=== PATIENT | female | born 1980 | race Caucasian/White ===

== ENCOUNTER → 2021-02-01 10:05 | Outpatient (BNVA) | payer BC, SELFPAY | PROVIDERS: Visit Provider Nurse Practitioner Family | DX: M79.671 Pain in right foot (principal); E78.5 Hyperlipidemia, unspecified; F32.A Depression, unspecified; F41.9 Anxiety disorder, unspecified; M77.31 Calcaneal spur, right foot | CPT/HCPCS: 73610; 73630; 80053; 80061; 82306; 82607; 84443; 85025 ==

== ENCOUNTER → 2021-02-07 08:38 | Outpatient (BNVA) | payer BC, SELFPAY | PROVIDERS: Visit Provider Nurse Practitioner Family | DX: M79.671 Pain in right foot (principal) | CPT/HCPCS: 73610 ==

== ENCOUNTER → 2021-03-06 10:17 | Outpatient (BNVA) | payer BC, SELFPAY | PROVIDERS: Visit Provider Nurse Practitioner Family | DX: M25.561 Pain in right knee (principal); M25.512 Pain in left shoulder; M77.12 Lateral epicondylitis, left elbow | CPT/HCPCS: 73030; 73562 ==

== ENCOUNTER → 2021-04-17 15:23 | Outpatient (BNVA) | payer BC, MEDICAID, SELFPAY | PROVIDERS: Referring Provider Nurse Practitioner Family; Visit Provider Podiatrist Foot & Ankle Surgery | DX: M79.671 Pain in right foot (principal); M79.89 Other specified soft tissue disorders; M77.31 Calcaneal spur, right foot | CPT/HCPCS: 73630 ==

== ENCOUNTER → 2021-05-19 09:58 | Outpatient (BNVA) | payer BC, MEDICAID, SELFPAY | PROVIDERS: PCP Nurse Practitioner Family; Visit Provider Nurse Practitioner Family | DX: R30.0 Dysuria (principal) | CPT/HCPCS: 81003 ==

== ENCOUNTER → 2021-06-07 14:45 | Outpatient (BNVA) | payer BC, MEDICAID, SELFPAY | PROVIDERS: PCP Nurse Practitioner Family; Visit Provider Nurse Practitioner Family | DX: M25.50 Pain in unspecified joint (principal); N93.9 Abnormal uterine and vaginal bleeding, unspecified; E55.9 Vitamin D deficiency, unspecified | CPT/HCPCS: 80053; 82306; 82607; 82670; 83002; 83735; 84144; 84146; 84403; 84439; 84443; 84550; 85025; 85651; 86038; 86140; 86200; 86431 ==

== ENCOUNTER 2021-07-11 09:28 | Outpatient (CLI) | payer BC, MEDICAID, SELFPAY ==
--- NOTE | 2021-07-11 09:35 | XR_ITS ---
WS: [email or web address] Cervical spine, 3 views, 07/11/2021 Clinical Data: Neck pain, numbness and tingling left hand, BAEZ Comparison: None. Findings: No compression fractures are seen. The disc heights are normal. There is no prevertebral so ft tissue swelling. The odontoid is unremarkable. The soft tissues of the neck and the lung apices ar e normal. XR/XR cervical spine 3V* [id number] Impression: Negative cervical spine.
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
== END 2021-07-11 09:29 | disposition home or self-care (01) ==
LOC: RAD 09:30
PROVIDERS: PCP Nurse Practitioner Family; Visit Provider Nurse Practitioner Family
DX: M54.9 Dorsalgia, unspecified (principal); G89.29 Other chronic pain; Z98.1 Arthrodesis status; M54.2 Cervicalgia
CPT/HCPCS: 72040; 72114

== ENCOUNTER → 2021-07-26 09:36 | Outpatient (BNVA) | payer BC, MEDICAID, SELFPAY | PROVIDERS: PCP Nurse Practitioner Family; Visit Provider Orthopaedic Surgery | DX: M25.461 Effusion, right knee (principal) | CPT/HCPCS: 99213 ==

== ENCOUNTER → 2021-08-23 15:47 | Outpatient (BNVA) | payer BC, MEDICAID, SELFPAY | PROVIDERS: PCP Nurse Practitioner Family; Visit Provider Obstetrics & Gynecology | DX: Z12.4 Encounter for screening for malignant neoplasm of cervix (principal); N93.9 Abnormal uterine and vaginal bleeding, unspecified | CPT/HCPCS: 87624 ==

== ENCOUNTER 2021-09-13 08:31 | Outpatient (CLI) | payer BC, MEDICAID, SELFPAY ==
--- NOTE | 2021-09-13 08:30 | US_ITS ---
WS: [email or web address] TRANSABDOMINAL PELVIC ULTRASOUND HISTORY: N93.9 - Abnormal uterine and vaginal bleeding, unspecified COMPARISON: None available. Uterus: 9.1 cm x 5.7 cm x 4.9 cm. Normal size and echogenicity. No fibroids are identified. Endometrium: 1.2 cm. Normal homogeneity and size. Right ovary: 2.9 cm x 2.1 cm x 2.1 cm; no solid or cystic mass. Small follicles. Normal vascularity. Left ovary: 2.5 cm x 2.5 cm x 2.2 cm; no solid or cystic mass. Small follicle LEFT ovary measures 2.0 x 2.1 x 2.2 cm. Normal vascularity. No free fluid in the cul-de-sac. US/US pelvic complete* [id number] IMPRESSION: 1. Only transabdominal imaging done as the patient was vomiting during this ex amination and very sick. 2. Endometrium is normal at 1.2 cm. No abnormality identified. If endovaginal bleeding persists follow-up transvaginal ultrasound of the endometrium may be w orthwhile. 3. No uterine mass.
== END 2021-09-13 08:32 | disposition home or self-care (01) ==
LOC: RAD 08:32
PROVIDERS: PCP Nurse Practitioner Family; Visit Provider Obstetrics & Gynecology
DX: N93.9 Abnormal uterine and vaginal bleeding, unspecified (principal)
CPT/HCPCS: 76856

== ENCOUNTER → 2021-10-18 12:01 | Outpatient (BNVA) | payer BC, MEDICAID, SELFPAY | PROVIDERS: PCP Nurse Practitioner Family; Visit Provider Nurse Practitioner Family | DX: E55.9 Vitamin D deficiency, unspecified (principal); F41.9 Anxiety disorder, unspecified; F32.A Depression, unspecified; E78.5 Hyperlipidemia, unspecified; I49.8 Other specified cardiac arrhythmias | CPT/HCPCS: 80053; 80061; 82306; 83735; 84439; 84443; 85025 ==

== ENCOUNTER → 2021-10-27 09:37 | Outpatient (BNVA) | payer BC, MEDICAID, SELFPAY | PROVIDERS: PCP Nurse Practitioner Family; Visit Provider Nurse Practitioner Family | DX: R53.83 Other fatigue (principal) | CPT/HCPCS: 82607 ==

== ENCOUNTER 2021-11-08 05:51 | Emergency (ER) | payer BC, MEDICAID, SELFPAY ==
[2021-11-08 05:55] VITALS: BP 148/93; PULSE 87; RESP 18; TEMP 36.8; O2SAT 100; BMI 39.1
[2021-11-08 06:00] VITALS: PULSE 73; RESP 17; O2SAT 100
--- NOTE | 2021-11-08 06:02 | W.ED.ABDPA2 ---
HPI - Abdominal Pain General: Chief Complaint: Abdominal Pain Stated Complaint: ABD Pain Time Seen by Provider: 11/08/21 05:56 Source: patient Mode of arrival: ambulatory History of Present Illness: 41-year-old female presents emergency room complaining of left flank pain radiating into the left lower quadrant and groin region. Its been progressively worsening the last couple of days radiating down into the groin. It reached its peak tonight. She had difficulty with urination but no dysuria urgency or frequency. She has been nauseous but not had any vomiting or diarrhea. She denies any medication melena hematemesis coffee-ground emesis no hematuria. No history of pyelonephritis no history of nephrolithiasis. Previous sections no other abdominal surgeries. Patient reports a history of irritable bowel syndrome but has not had previously had a colonoscopy or biopsies. MD elicited complaint: abdominal pain Pertinent past history: other (IBS) Onset (ago): day(s) (2) Pain Consistency: now resolved Location: L flank Severity: severe Quality: sharp Radiation: suprapubic (Left) Exacerbating factors: nothing Relieving factors: nothing Associated Symptoms: Denies anorexia, belching, bloating, change in bowel habits, change in stool character, chills, coffee ground emesis, constipation, GI cramping, diarrhea, dyspepsia, dysuria, excessive flatus, fever(s), heartburn, hematochezia, hematuria, hematemesis, fecal incontinence, loose stools, melena, nausea, poor appetite, syncope and vomiting Related Data: Date of Last Menstrual Period: 10/25/21 Review of Systems Const: Denies: fever(s) or chills ENMT: Denies: throat pain, ear or mastoid pain, nasal discharge or nasal congestion Card: Denies: syncope Resp: Denies: dyspnea, productive cough or non-productive cough GI: Reports: abdominal pain; Denies: nausea, vomiting, hematemesis, coffee ground emesis, heartburn, diarrhea, constipation, bloating, GI cramping, belching, excessive flatus, fecal incontinence, change in bowel habits, change in stool character, hematochezia or melena : Reports: flank pain; Denies: difficulty voiding, dysuria, urinary frequency, urinary urgency or hematuria Skin/Breast: Denies: rash or pruritus PFSH ED PFSH: Medical History Depression History of congenital dysplasia of hip Hyperlipidemia No pertinent past medical history Denies diabetes, asthma, hypertension, seizures, DVT/PE PCP: MERISSA Bee Surgical History Hx of section Hx of spinal fusion S/P foot surgery 1994, performed for varicose vein thrombosis S/P tubal ligation Performed in 2008 at time of last Family History Father , age 66; lung ca; COPD Hyperlipidemia Heart disease Family/Other No problems noted. Grandmother Diabetes paternal Breast cancer diagnosed in her late 60s Mother Hypertension Breast cancer diagnosed in her late 50s. Denies family history of Colon cancer Ovarian cancer Uterine cancer Thyroid condition Stroke Social History Smoking and tobacco status: never smoked Female Reproductive History: Date of last menstrual period: 10/25/21 Physical Exam Const: COMMON NORMALS: no acute distress GENERAL APPEARANCE: cooperative and comfortable ORIENTATION/CONSCIOUSNESS: Yes awake, Yes oriented to person, Yes oriented to place and Yes oriented to time HENMT: COMMON NORMALS: normocephalic, atraumatic and hearing grossly normal bilaterally HEAD & SCALP: normocephalic and atraumatic Resp: COMMON NORMALS: normal respiratory effort, No retractions, No use of accessory muscles and clear to auscultation bilaterally AUSCULTATION: clear to auscultation bilaterally Cardio: COMMON NORMALS: regular rate, regular rhythm and No murmurs present (Cardio) RATE: regular rate RHYTHM: regular rhythm GI: COMMON NORMALS: Soft to palpation and No hepatosplenomegaly present AUSCULTATION: Yes normoactive bowel sounds PALPATION: Yes Soft to palpation, No Tenderness to palpation present (GI), No Guarding due to palpation present (GI) and Yes No hepatosplenomegaly present : COMMON NORMALS: Yes no CVA tenderness BLADDER/KIDNEY EXAM: Yes no CVA tenderness Back/Pelvis: COMMON NORMALS: no CVA tenderness Extremity: COMMON NORMALS: normal to inspection, capillary refill normal, no clubbing, cyanosis or edema, no calf tenderness and no pedal edema Neuro: SENSORIUM/ORIENTATION: Yes oriented to person, Yes oriented to place and Yes oriented to time Skin: COMMON NORMALS: no rashes or lesions noted GENERAL SKIN EXAM: no rashes or lesions noted Course Vital Signs: Vital signs: Vital Signs Temperature 98.3 F 11/08/21 05:55 Pulse Rate 67 11/08/21 07:22 Respiratory Rate 18 11/08/21 07:22 Blood Pressure 152/78 11/08/21 07:22 Pulse Oximetry 95 11/08/21 07:22 Oxygen Delivery Me thod 11/08/21 07:22 MDM - Abdominal Pain Medical Decision Making Labs and imaging reviewed. CT shows 3 mm stone within the bladder which fits the clinical picture. Patient has to strain urine hydrocodone for pain follow-up with urology return if has further problems or worsening pain. Medical Records I reviewed the patient's medical records. Lab Data I reviewed the patient's lab results. : 11/08/21 06:00 11/08/21 06:00 Labs/Radiology: Radiology Impressions Abdomen/Pelvis CT 11/08/21 06:51 IMPRESSION: 3 mm stone in the most dependent portion of the urinary bladder, possibly a recently passed stone. No renal or ureteral stones identified. No signs of urinary obstruction. COMMENTS: Evaluation of solid organs and vascular structures is limited as no IV contrast was administered. Laboratory Results WBC 6.9 10^3/uL (4.0-10.0) 11/08/21 06:00 RBC 4.10 10^6/uL (4.1-5.3) 11/08/21 06:00 Hgb 11.1 g/dL (11.5-15.3) L 11/08/21 06:00 Hct 34.9 % (37.0-47.0) L 11/08/21 06:00 MCV 85.1 fl (81-99) 11/08/21 06:00 MCH 27.1 pg (28.0-34.0) L 11/08/21 06:00 MCHC 31.8 g/dL (30.0-36.0) 11/08/21 06:00 RDW 14.2 % (12.1-15.1) 11/08/21 06:00 Plt Count 234 10^3/cmm (130-400) 11/08/21 06:00 MPV 10.4 fL (7.4-10.4) 11/08/21 06:00 Neut % (Auto) 61.5 % 11/08/21 06:00 Lymph % (Auto) 28.4 % 11/08/21 06:00 [place] % (Auto) 6.1 % 11/08/21 06:00 Eos % (Auto) 3.0 % 11/08/21 06:00 Baso % (Auto) 0.9 % 11/08/21 06:00 Neut # (Auto) 4.27 10^3/uL (1.8-7.7) 11/08/21 06:00 Lymph # (Auto) 2.0 10^3/uL (0.8-4.8) 11/08/21 06:00 [place] # (Auto) 0.4 10^3/uL (0.2-0.9) 11/08/21 06:00 Eos # (Auto) 0.2 10^3/uL (0.0-0.8) 11/08/21 06:00 Baso # (Auto) 0.1 10^3/uL (0.0-0.1) 11/08/21 06:00 Nucleated RBC % (auto) 0 % 11/08/21 06:00 Nucleated RBCs # 0.0 /100WBC 11/08/21 06:00 Sodium 141 mmol/L (136-145) 11/08/21 06:00 Potassium 4.0 mmol/L (3.5-5.1) 11/08/21 06:00 Chloride 103 mmol/L (98-107) 11/08/21 06:00 Carbon Dioxide 26 mmol/L (22-29) 11/08/21 06:00 Anion Gap 16.0 (5-19) 11/08/21 06:00 BUN 9 mg/dL (6-20) 11/08/21 06:00 Creatinine 0.5 mg/dL (0.5-0.9) 11/08/21 06:00 GFR Calculation 136.6 mL/min (90-130) H 11/08/21 06:00 Glucose 124 mg/dL (65-115) H 11/08/21 06:00 Calculated Osmolality 292 mOsm/kg (285-295) 11/08/21 06:00 Calcium 9.1 mg/dL (8.5-10.5) 11/08/21 06:00 Total Bilirubin 0.5 mg/dL (0.15-1.2) 11/08/21 06:00 AST 16 U/L (0-32) 11/08/21 06:00 ALT 22 U/L (0-33) 11/08/21 06:00 Alkaline Phosphatase 62 U/L (35-105) 11/08/21 06:00 Total Protein 7.0 g/dL (6.6-8.7) 11/08/21 06:00 Albumin 4.3 g/dL (3.5-5.2) 11/08/21 06:00 Globulin 2.7 g/dL (1.3-4.6) 11/08/21 06:00 Lipase 27 U/L (13-60) 11/08/21 06:00 HCG, Qual Negative (Negative) 11/08/21 06:00 Urine Color Yellow (Yellow) 11/08/21 06:28 Urine Appearance Clear (CLEAR) 11/08/21 06:28 Urine pH 5.5 (5-7) 11/08/21 06:28 Ur Specific [place] >= 1.030 (1.005-1.030) 11/08/21 06:28 Urine Protein Negative (Negative) 11/08/21 06:28 Urine Glucose (UA) Negative (Normal) 11/08/21 06:28 Urine Ketones Negative (Negative) 11/08/21 06:28 Urine Blood Large (Negative) A 11/08/21 06:28 Urine Nitrate Negative 11/08/21 06:28 Urine Bilirubin Negative (Negative) 11/08/21 06:28 Urine Urobilinogen 0.2 mg/dL (Negative) 11/08/21 06:28 Ur Leukocyte Esterase Negative 11/08/21 06:28 Urine RBC 25-40 /hpf (0-2) H 11/08/21 06:28 Urine WBC 5-10 /hpf (0-5) H 11/08/21 06:28 Ur Squamous Epith Cells 10-15 /hpf (0-5) H 11/08/21 06:28 Amorphous Sediment Not Reportable 11/08/21 06:28 Urine Bacteria 1+ /hpf (NONE) H 11/08/21 06:28 Discharge Plan Discharge Patient Disposition: Home Clinical Impression: Nephrolithiasis Condition: Stable Prescriptions: New hydrocodone-acetaminophen 5-325 mg tablet 1 tab PO Q6H PRN (Reason: pain) Qty: 10 0RF No Action sertraline [Zoloft] 50 mg tablet 50 mg PO DAILY Qty: 90 3RF ergocalciferol (vitamin D2) 1,250 mcg (50,000 unit) capsule 1,250 mcg PO .weekly Qty: 12 4RF cyanocobalamin (vitamin B-12) 1,000 mcg tablet, sublingual 2,000 mcg sublingual DAILY Qty: 60 2RF Discharge Orders: Discharge ED (Routine); Ordered 11/08/21 Ordered By: Trevor Rich Referrals: Ana M Brady FNP [Primary Care Provider] - Discharge Diet: Usual diet Discharge Activity: Resume usual activity Patient Instructions: Opioid Safety, Pain Management Activity Restrictions/Additional Instructions: Laboratory and imaging test today showed that you passed a kidney stone. That stone is still in the bladder. Strain your urine to catch the stone so that we can analyze it. Case management make arrangements for you to have follow-up with a urologist. Coding Level of Care Code ED Sheet Pile Driver Operator for Mitchell Fwd Exam Comprehensive
[2021-11-08 06:18] LABS: Basophils # 0.1 10^3/uL (0.0-0.1); Basophils % 0.9 %; Eosinophils # 0.2 10^3/uL (0.0-0.8); Hematocrit 34.9 % (37.0-47.0); Hemoglobin 11.1 g/dL (11.5-15.3); Lymphocytes % 28.4 %; Mean Corpuscular HGB Conc 31.8 g/dL (30.0-36.0); Mean Corpuscular Hemoglobin 27.1 pg (28.0-34.0); Mean Corpuscular Volume 85.1 fl (81-99); Mean Platelet Volume 10.4 fL (7.4-10.4); Monocytes # 0.4 10^3/uL (0.2-0.9); Monocytes % 6.1 %; Neutrophils # 4.27 10^3/uL (1.8-7.7); Neutrophils % 61.5 %; Nucleated Red Blood Cells % 0 %; Platelet Count 234 10^3/cmm (130-400); Red Cell Distribution Width 14.2 % (12.1-15.1); White Blood Count 6.9 10^3/uL (4.0-10.0)
[2021-11-08 06:22] LABS: HCG, Serum Qual Negative (Negative)
[2021-11-08 06:33] LABS: Alanine Aminotransferase 22 U/L (0-33); Albumin Level 4.3 g/dL (3.5-5.2); Alkaline Phosphatase 62 U/L (35-105); Aspartate Amino Transferase 16 U/L (0-32); Blood Urea Nitrogen 9 mg/dL (6-20); Calcium 9.1 mg/dL (8.5-10.5); Carbon Dioxide 26 mmol/L (22-29); Chloride 103 mmol/L (98-107); Globulin 2.7 g/dL (1.3-4.6); Glomerular Filtration Rate 136.6 mL/min (90-130); Glucose 124 mg/dL (65-115); Lipase 27 U/L (13-60); Osmolality Calculated 292 mOsm/kg (285-295); Sodium 141 mmol/L (136-145); Total Bilirubin 0.5 mg/dL (0.15-1.2)
[2021-11-08 06:42] LABS: Bilirubin Urine Negative (Negative); Blood Urine Large (Negative); Glucose Urine UA Negative (Normal); Ketones Urine Negative (Negative); Leukocyte Esterase Urine Negative; Nitrate Urine Negative; Protein Urine Negative (Negative); Specific Gravity, Urine >= 1.030 (1.005-1.030); Urine Appearance Clear (CLEAR); Urine Color Yellow (Yellow); Urobilinogen Urine 0.2 mg/dL (Negative); pH Urine 5.5 (5-7)
[2021-11-08 06:44] LABS: Add Urine Microscopic? YES
--- NOTE | 2021-11-08 06:51 | CTR_ITS ---
PROCEDURE INFORMATION: Exam: CT Abdomen And Pelvis Without Contrast Exam date and time: 11/08/2021 7:07 AM Age: 41 years old Clinical indication: Abdominal pain; Localized; Left lower quadrant (llq); Prior surgery; Surgery type: Back, ; Additional info: Flank pain TECHNIQUE: Imaging protocol: Computed tomography of the abdomen and pelvis without contrast. Radiation optimization: All CT scans at this facility use at least one of these dose optimization techniques: automated exposure control; mA and/or kV adjustment per patient size (includes targeted exams where dose is matched to clinical indication); or iterative reconstruction. COMPARISON: US pelvic complete* [id number] 09/13/2021 8:47 AM RADIATION DOSE METRICS: Total DLP (mGy-cm): 1025.28 FINDINGS: Liver: The liver is normal in size and contour. Gallbladder and bile ducts: The gallbladder is distended with normal wall thickness and does not demonstrate calcified gallstones. No intra- or extra-hepatic biliary ductal dilatation. Pancreas: The pancreas appears normal. Spleen: The spleen appears normal. Adrenal glands: The adrenals appear normal. Kidneys and ureters: No renal or ureteral stones identified. No signs of urinary obstruction. Perinephric or periureteral fat stranding. Stomach and bowel: The stomach is unremarkable. The small bowel loops are not abnormally dilated. The large bowel loops are not abnormally dilated. Appendix: The appendix appears normal. Intraperitoneal space: No ascites or significant fluid collection. Vasculature: The aorta is nonaneurysmal. The IVC appears normal. Lymph nodes: There are no enlarged lymph nodes. Urinary bladder: 3 mm stone in the most dependent portion of the urinary bladder, possibly a recently passed stone. Reproductive: Unremarkable as visualized. Bones/joints: Posterior spinal fixation hardware extending from T10-L2. Soft tissues: Unremarkable. CT/CT kidney stone [id number] IMPRESSION: 3 mm stone in the most dependent portion of the urinary bladder, possibly a recently passed stone. No renal or ureteral stones identified. No signs of urinary obstruction. COMMENTS: Evaluation of solid organs and vascular structures is limited as no IV contrast was administered.
[2021-11-08 07:00] LABS: Add Urine Culture? No; Bacteria Urine 1+ /hpf; RBC Urine 25-40 /hpf (0-2)
--- NOTE | 2021-11-08 07:21 | PC.NURSE ---
Report from BERTHA Cage. Pt resting quietly, no needs at this time.
[2021-11-08 07:22] VITALS: BP 152/78; PULSE 67; RESP 18; O2SAT 95
--- NOTE | 2021-11-08 09:46 | DCPLANNER ---
Addendum entered by Nyasia Means 11/30/21 14:59: Patient had a follow up appointment scheduled with urology - patient did attend appointment. Addendum entered by Nyasia Means 11/10/21 09:09: Patient has a follow up appointment scheduled for Saturday, November 27, 2021 at 10:30 with Rayne Sommer at urology. Clinic will call patient with appointment information. Original Note: apartment assistant manager had message to schedule a follow up appointment for patient with urology. apartment assistant manager sent patients information to the front office staff at urology. Patients information will be printed and reviewed. Clinic will call patient with appointment information.
== END 2021-11-08 08:12 | disposition home or self-care (01) ==
PROVIDERS: Emergency Provider Family Medicine; PCP Nurse Practitioner Family
DX: N20.0 Calculus of kidney (principal); E78.5 Hyperlipidemia, unspecified
CPT/HCPCS: 74176; 80053; 81001; 83690; 84703; 85025; 99284

== ENCOUNTER 2021-11-27 09:34 | Outpatient (CLI) | payer BC, MEDICAID, SELFPAY ==
--- NOTE | 2021-11-27 09:51 | XR_ITS ---
WS: [email or web address] KUB, AP view, 11/27/2021 Clinical Data: STONES Comparison: None. Findings: No abnormal intraabdominal masses or calcifications are seen. There is no dilatated small bowel or ev idence of obstruction. There is fecal material in the ascending and descending colon. The patient has had a posterior thorac olumbar fusion. XR/XR KUB [id number] Impression: Negative KUB.
== END 2021-11-27 09:35 | disposition home or self-care (01) ==
LOC: LAB 09:36
PROVIDERS: PCP Nurse Practitioner Family; Visit Provider Nurse Practitioner Family
DX: N20.9 Urinary calculus, unspecified (principal)
CPT/HCPCS: 74018

== ENCOUNTER → 2021-12-12 08:17 | Outpatient (BNVA) | payer BC, MEDICAID, SELFPAY | PROVIDERS: PCP Nurse Practitioner Family; Visit Provider Orthopaedic Surgery | DX: G89.29 Other chronic pain (principal); M25.561 Pain in right knee; M25.461 Effusion, right knee | CPT/HCPCS: 73560; 73565 ==

== ENCOUNTER 2022-01-18 06:17 | Outpatient (CLI) | payer BC, MEDICAID, SELFPAY ==
--- NOTE | 2022-01-18 06:30 | USCV_ITS ---
Faith Hoang Age: 41 Gender: F : 1980 Exam Date: 01/18/2022 06:55 Ordering Phys: Allison Fragoso MD ([email or web address]) Technologist: TAMMY Exam Location: [facility] [place] Indication: TACHYCARDIA/SYNCOPE BP: 104 / 68 HR: 70 Rhythm: Sinus Technical Quality: Adequate MEASUREMENTS (Male / Female) Normal Values 2D ECHO LVOT Diameter 2.0 cm LV Ejection Fraction MOD 2C 63.2 % LV Ejection Fraction 2C AL 66.2 % LA Diameter 3.6 cm LA Width 3.8 cm LA Height 4.8 cm RA Width 3.9 cm RA Height 4.6 cm Aorta at Sinotubular Diameter 2.5 cm IVC Diameter 2.0 cm M-MODE Aortic Annulus Diameter 3.0 cm LA Ao Ratio MM 1.3 MV E Point Septal Separation 0.6 cm DOPPLER AV Peak Velocity 111.0 cm/s LVOT Peak Velocity 112.0 cm/s AV Area Cont Eq vti 3.3 cm squared AV Area Cont Eq pk 3.1 cm squared MV Peak Velocity 79.0 cm/s MV Area PHT 2.7 cm squared Mitral E to A Ratio 1.3 MV E' Velocity 42.5 cm/s Mitral E to MV E' Ratio 6.6 Mitral E to LV E' Lateral Ratio 5.2 Mitral E to LV E' Septal Ratio 9.0 TR Peak Velocity 219.1 cm/s TR Peak Gradient 19.2 mmHg TR Mean Velocity 172.3 cm/s TR Mean Gradient 13.0 mmHg TR Velocity Time Integral 68.9 cm TV Peak E Velocity 56.0 cm/s Right Atrial Pressure 3.0 mmHg Pulmonary Artery Systolic Pressu 22.2 mmHg PV Peak Velocity 100.0 cm/s RV Acceleration Time 0.1 s RV Ejection Time 0.3 s RV AcT/ET 0.4 FINDINGS Left Ventricle Normal left ventricular size and systolic function, EF 58 %. No regional wall motion abnormalities. Right Ventricle The right ventricle is normal in size and function. Right Atrium The right atrium is normal in size. Left Atrium The left atrium is normal in size. Mitral Valve Structurally normal mitral valve. Aortic Valve No gross abnormalities noted Tricuspid Valve Trace tricuspid valve regurgitation. Pulmonic Valve No gross abnormalities noted Pericardium Normal pericardium without effusion. Aorta Normal ascending aorta dimension. IVC Normal inferior vena cava. CONCLUSIONS Normal left ventricular size and systolic function, EF 58 %. No regional wall motion abnormalities. Trace tricuspid valve regurgitation. Normal cardiac chamber sizes. No intracardiac shunts, by color-flow Doppler examination No intracardiac masses. There is no pericardial effusion. No similar previous studies are available for comparison Dr Allison Fragoso MD FAC (Electronically Signed) Final Date: 19 January 2022 18:48 S
== END 2022-01-18 06:18 | disposition home or self-care (01) ==
LOC: RAD 06:18
PROVIDERS: PCP Nurse Practitioner Family; Visit Provider Internal Medicine Cardiovascular Disease
DX: R00.0 Tachycardia, unspecified (principal); R06.09 Other forms of dyspnea; I07.1 Rheumatic tricuspid insufficiency
CPT/HCPCS: 93306

== ENCOUNTER → 2022-02-07 16:08 | Outpatient (BNVA) | payer BC, MEDICAID, SELFPAY | PROVIDERS: PCP Nurse Practitioner Family; Visit Provider Nurse Practitioner Family | DX: J06.9 Acute upper respiratory infection, unspecified (principal); J04.0 Acute laryngitis; J40 Bronchitis, not specified as acute or chronic | CPT/HCPCS: 71046; 80053 ==

== ENCOUNTER → 2022-02-20 17:14 | Outpatient (BNVA) | payer BC, MEDICAID, SELFPAY | PROVIDERS: PCP Nurse Practitioner Family; Visit Provider Nurse Practitioner Family | DX: R31.9 Hematuria, unspecified (principal); R30.9 Painful micturition, unspecified; M54.9 Dorsalgia, unspecified | CPT/HCPCS: 74018; 81000; 81003 ==

== ENCOUNTER → 2022-03-27 08:41 | Outpatient (BNVA) | payer BC, MEDICAID, SELFPAY | PROVIDERS: PCP Nurse Practitioner Family; Visit Provider Orthopaedic Surgery | DX: M54.50 Low back pain, unspecified (principal); Z98.1 Arthrodesis status | CPT/HCPCS: 72070; 72110 ==

== ENCOUNTER 2022-06-07 09:21 | Outpatient (CLI) | payer BC, MEDICAID, SELFPAY ==
--- NOTE | 2022-06-07 09:30 | MR_ITS ---
WS: [email or web address] MRI LUMBAR SPINE NONCONTRAST HISTORY: low back pain, previous lumbar fusion COMPARISON: None available. TECHNIQUE: Sagittal and axial multisequence imaging is submitted. Prior posterior thoracolumbar fusion from T10 to L2. T12 compression fracture is stabilized by the kelly isabela. No hardware screws at T12. Mild anterior wedging of T12. Normal lumbar alignment with no compression fractures or marrow edema. Disc spaces and vertebral body heights are well-preserved. Conus terminates normally at L1. L1-L2: Normal. L2-L3: Normal. L3-L4: Mild ligamentum flavum hypertrophy and facet disease. No stenosis. L4-L5: Mild annular disc bulging. Shallow LEFT foraminal disc protrusion with annular fissure. Modera te ligamentum flavum and facet arthritis. There is mild encroachment into the thecal sac and subartic ular recesses. Mild bilateral foraminal stenosis. L5-S1: Mild annular disc bulge. RIGHT foraminal disc protrusion and annular fissure. Disc protrusion narrows and contacts the exiting RIGHT L5 nerve root. Very slight encroachment into the lateral reces ses but no significant stenosis. MR/MR lumbar spine wo con* [id number] IMPRESSION: 1. Status post posterior thoracolumbar fusion from T10 to L2. Stabilizing a mi ld T12 compression fracture. 2. No new compression fractures. 3. RIGHT foraminal disc protrusion with annular fissure at L5-S1 with mild con tact on the RIGHT L5 nerve root. 4. Mild central, subarticular recess and foraminal stenosis at L4-5.
== END 2022-06-07 09:22 | disposition home or self-care (01) ==
LOC: RAD 09:23
PROVIDERS: PCP Nurse Practitioner Family; Visit Provider Orthopaedic Surgery
DX: M48.061 Spinal stenosis, lumbar region without neurogenic claudication (principal); Z98.1 Arthrodesis status; G89.29 Other chronic pain; M51.27 Other intervertebral disc displacement, lumbosacral region
CPT/HCPCS: 72148

== ENCOUNTER → 2022-06-15 09:38 | Outpatient (BNVA) | payer BC, MEDICAID, SELFPAY | PROVIDERS: PCP Nurse Practitioner Family; Visit Provider Nurse Practitioner Family | DX: N93.9 Abnormal uterine and vaginal bleeding, unspecified (principal); E78.5 Hyperlipidemia, unspecified | CPT/HCPCS: 80053; 80061; 83001; 84146; 84403; 84443; 85025 ==

== ENCOUNTER 2022-11-05 08:13 | Outpatient (CLI) | payer MEDICAID, SELFPAY ==
--- NOTE | 2022-11-05 08:31 | MM_ITS ---
WS: [email or web address] SCREENING DIGITAL TOMOSYNTHESIS MAMMOGRAM WITH CAD HISTORY: N95.1 - Menopausal and female climacteric states COMPARISON: None available. Bilateral CC and MLO with tomosynthesis views submitted. Synthetic mammography reviewed. Computer aid ed detection analyzed. Breast composition: The breasts are heterogeneously dense, which may obscure small masses. No suspici ous masses, microcalcifications or architectural distortion. IMPRESSION: MM/[place] [id number] BI-RADS: 1-Negative FOLLOW UP: 1 Year Follow-up
== END 2022-11-05 08:14 | disposition home or self-care (01) ==
PROVIDERS: PCP Nurse Practitioner Family; Visit Provider Obstetrics & Gynecology
DX: Z12.31 Encounter for screening mammogram for malignant neoplasm of breast (principal)
CPT/HCPCS: 77063; 77067

== ENCOUNTER 2022-12-25 09:25 | Outpatient (CLI) | payer MEDICAID, SELFPAY ==
--- NOTE | 2022-12-25 09:30 | MR_ITS ---
WS: [email or web address] MRI BRAIN WITH AND WITHOUT CONTRAST HISTORY: G43.909 - Migraine, unspecified, not intractable, left-sided headache and neck pain. COMPARISON: None available. TECHNIQUE: Multiplanar imaging performed through the brain with MultiHance 20 ml's IV. No acute infarcts are seen. Spears-white matter differentiation is well preserved. No susceptibility artifacts or prior lacunar infarcts. Ventricles and extra-axial spaces are normal. Clivus and pituitary gland are normal. Visualized posterior fossa and brainstem are also normal. Solid masslike area of enhancement just above the sylvian fissure on the LEFT is typical for a venous angioma. No enhancing masses or additional malformations. Dural venous sinuses are normal. Paranasal sinuses: Well aerated with no significant disease. Mastoid air cells: Normal. Calvarium and scalp: Normal. IMPRESSION: 1. No enhancing masses or acute infarct. 2. LEFT venous angioma just above the sylvian fissure. 3. No prior infarct or signal abnormalities.
[2022-12-25] MEDS: gadobenate dimeglumine 20 mL vial IV (10:10)
== END 2022-12-25 09:26 | disposition home or self-care (01) ==
LOC: RAD 09:25
PROVIDERS: PCP Nurse Practitioner Family; Visit Provider Nurse Practitioner Family
DX: G43.909 Migraine, unspecified, not intractable, without status migrainosus (principal); Q28.3 Other malformations of cerebral vessels
CPT/HCPCS: 70553; A9577

== ENCOUNTER → 2023-01-24 16:56 | Outpatient (BNVA) | payer MEDICAID, SELFPAY | PROVIDERS: PCP Nurse Practitioner Family; Visit Provider Obstetrics & Gynecology | DX: R53.83 Other fatigue (principal); R63.5 Abnormal weight gain; E78.5 Hyperlipidemia, unspecified; E28.2 Polycystic ovarian syndrome; N94.6 Dysmenorrhea, unspecified; R10.2 Pelvic and perineal pain; G89.29 Other chronic pain | CPT/HCPCS: 84443 ==

== ENCOUNTER 2023-04-11 08:55 | Outpatient (CLI) | payer MEDICAID, SELFPAY ==
--- NOTE | 2023-04-11 09:30 | MR_ITS ---
WS: [email or web address] MRA HEAD TECHNIQUE: Axial 3-D TOF images obtained with axial images and axial, sagittal, and coronal 2-D refor matted images. CLINICAL INFORMATION: G43.909 - Migraine, unspecified, not intractable, without... COMPARISON: None. FINDINGS: LEFT dominant distal vertebral artery. Basilar artery is patent. Normal vascularity to the WOOD SCRAP HANDLER territ ory bilaterally. Both ICAs are patent at the skull base. Small RIGHT A1 segment. Patent anterior communicating artery. Normal vascularity to the PRASANTH and MCA territories bilaterally. No evidence of proximal flow-limiting stenosis or aneurysm. IMPRESSION: Normal intracranial MRA.
--- NOTE | 2023-04-11 09:45 | MR_ITS ---
WS: [email or web address] MRI CERVICAL SPINE NONCONTRAST TECHNIQUE: Sagittal T1, T2 and STIR imaging. Axial T2, gradient, and fiesta imaging. CLINICAL INFORMATION: G43.909 - Migraine, unspecified, not intractable, without... Contrast not admin istered. Unable to obtain IV access. COMPARISON: None. FINDINGS: Straightening the normal cervical doses. Slight anterolisthesis C3 on C4. Mild disc bulging worse C4- C5 C5-C6 and C6-C7. Cord signal is normal. C2-C3: Normal. C3-C4: Mild facet arthropathy. Mild disc bulging with osteophytic ridging. Mild LEFT foraminal narrow ing. C4-C5: Small central disc protrusion. Slight contact of the cervical cord. Mild central canal stenosi s. Mild bilateral bony foraminal narrowing. Mild facet arthropathy. C5-C6: Shallow central disc protrusion. Mild central canal stenosis. Mild LEFT and no significant RIG HT foraminal narrowing. Mild facet arthropathy. C6-C7: Shallow central protrusion. Slight contact of the cervical cord. Mild central canal stenosis. Spinal canal and foramen are patent. C7-T1: Normal. Cord signal appears normal. No visualized lesions in the cervical cord. Visualized brain stem structures: Normal. Prevertebral soft tissues: Normal. IMPRESSION: 1. Straightening the normal cervical lordosis. Cord signal is normal. 2. Shallow central protrusions C4-C5 C5-C6 and C6-C7 with mild central canal stenosis and slight con tact of the cervical cord. This is worse at C4-5. 3. Multilevel mild bony foraminal narrowing worse at bilateral C4-5, LEFT C5-6 4. No visualized lesions within the cervical cord.
== END 2023-04-11 08:56 | disposition home or self-care (01) ==
LOC: RAD 08:55
PROVIDERS: PCP Nurse Practitioner Family; Visit Provider Psychiatry & Neurology Neurology
DX: G43.909 Migraine, unspecified, not intractable, without status migrainosus (principal); M54.81 Occipital neuralgia; M25.78 Osteophyte, vertebrae
CPT/HCPCS: 70544; 72141

== ENCOUNTER → 2023-04-30 08:18 | Outpatient (BNVA) | payer MEDICAID, SELFPAY | PROVIDERS: PCP Nurse Practitioner Family; Visit Provider Orthopaedic Surgery | DX: M54.2 Cervicalgia (principal) | CPT/HCPCS: 72050 ==

== ENCOUNTER → 2023-05-09 09:13 | Outpatient (BNVA) | payer MEDICAID, SELFPAY | PROVIDERS: PCP Nurse Practitioner Family; Visit Provider Nurse Practitioner Family | DX: M25.571 Pain in right ankle and joints of right foot (principal); E78.5 Hyperlipidemia, unspecified; E55.9 Vitamin D deficiency, unspecified; R73.9 Hyperglycemia, unspecified | CPT/HCPCS: 73610; 80053; 80061; 82306; 82607; 83036; 85025 ==

== ENCOUNTER 2023-06-12 06:00 | Outpatient (RCR) | payer MEDICAID, SELFPAY | END 2023-07-12 23:59 | disposition home or self-care (01) | LOC: TPT 06:00 | PROVIDERS: Visit Provider Anesthesiology Pain Medicine | DX: M54.2 Cervicalgia (principal); G89.29 Other chronic pain | CPT/HCPCS: 97110; 97140; 97162 ==

== ENCOUNTER 2023-07-13 06:00 | Outpatient (RCR) | payer MEDICAID, SELFPAY | END 2023-08-11 23:59 | disposition home or self-care (01) | LOC: TPT 06:00 | PROVIDERS: Visit Provider Anesthesiology Pain Medicine | DX: M54.2 Cervicalgia (principal); G89.29 Other chronic pain | CPT/HCPCS: 97110; 97140 ==

== ENCOUNTER 2023-08-12 06:00 | Outpatient (RCR) | payer MEDICAID, SELFPAY | END 2023-09-11 23:59 | disposition home or self-care (01) | LOC: TPT 06:00 | PROVIDERS: Visit Provider Anesthesiology Pain Medicine | DX: M54.2 Cervicalgia (principal); G89.29 Other chronic pain | CPT/HCPCS: 97110; 97140 ==

== ENCOUNTER → 2023-09-23 11:15 | Outpatient (BNVA) | payer MEDICAID, SELFPAY | PROVIDERS: Visit Provider Obstetrics & Gynecology | DX: Z12.4 Encounter for screening for malignant neoplasm of cervix (principal); E28.2 Polycystic ovarian syndrome | CPT/HCPCS: 84402; 84403; 87624 ==

== ENCOUNTER → 2023-09-25 14:25 | Outpatient (BNVA) | payer MEDICAID, SELFPAY | PROVIDERS: PCP Nurse Practitioner Family; Visit Provider Nurse Practitioner Family | DX: R05.9 Cough, unspecified (principal) | CPT/HCPCS: 87071; 87400; 87426; 87880 ==

== ENCOUNTER → 2023-11-22 10:30 | Outpatient (BNVA) | payer MEDICAID, SELFPAY | PROVIDERS: PCP Nurse Practitioner Family; Visit Provider Nurse Practitioner Family | DX: E78.5 Hyperlipidemia, unspecified (principal); E55.9 Vitamin D deficiency, unspecified; E28.2 Polycystic ovarian syndrome | CPT/HCPCS: 80053; 80061; 82306; 82607; 83036; 84443; 85025 ==

== ENCOUNTER 2023-11-26 09:58 | Outpatient (CLI) | payer MEDICAID, SELFPAY ==
--- NOTE | 2023-11-26 10:00 | MM_ITS ---
WS: [email or web address] Bilateral screening 3D tomosynthesis digital mammogram, 11/26/2023 10:08 AM Clinical Data: SCREENING Comparison: 11/05/2022, 06/24/2014. Findings: No spiculated masses or clustered calcifications are seen. There are no secondary signs of carcinoma . MM/MM scr BI tomosynthesis [id number] Impression: Negative bilateral mammogram unchanged. Recommend annual screening mammograms. BIRADS: 1 - Negative FOLLOW UP: 1 Year Follow-up DENSITY: The breasts are heterogeneously dense, which may obscure small masses. The CAD abstract checker was used
== END 2023-11-26 09:59 | disposition home or self-care (01) ==
LOC: MOBLMAM 09:59
PROVIDERS: PCP Obstetrics & Gynecology; Visit Provider Obstetrics & Gynecology
DX: Z12.31 Encounter for screening mammogram for malignant neoplasm of breast (principal)
CPT/HCPCS: 77063; 77067

== ENCOUNTER 2024-04-14 13:54 | Outpatient (CLI) | payer MEDICAID, SELFPAY | END 2024-04-14 13:55 | disposition home or self-care (01) | LOC: SLEEP 13:55 | PROVIDERS: PCP Nurse Practitioner Family; Visit Provider Nurse Practitioner Family | DX: G47.33 Obstructive sleep apnea (adult) (pediatric) (principal) | CPT/HCPCS: 72050; 72110; G0399 ==

== ENCOUNTER → 2024-05-18 14:44 | Outpatient (BNVA) | payer MEDICAID, SELFPAY | PROVIDERS: PCP Nurse Practitioner Family; Visit Provider Nurse Practitioner Women's Health | DX: N95.1 Menopausal and female climacteric states (principal) | CPT/HCPCS: 82670; 83001; 83002; 83036; 84403; 84443 ==

== ENCOUNTER → 2024-05-22 09:09 | Outpatient (BNVA) | payer MEDICAID, SELFPAY | PROVIDERS: PCP Nurse Practitioner Family; Visit Provider Nurse Practitioner Women's Health | DX: R30.0 Dysuria (principal) | CPT/HCPCS: 81000; 87086 ==

== ENCOUNTER → 2024-06-15 15:16 | Outpatient (BNVA) | payer MEDICAID, SELFPAY | PROVIDERS: PCP Nurse Practitioner Family; Visit Provider Nurse Practitioner Family | DX: M25.561 Pain in right knee (principal); M25.562 Pain in left knee | CPT/HCPCS: 73562 ==

== ENCOUNTER → 2024-06-26 09:04 | Outpatient (BNVA) | payer MEDICAID, SELFPAY | PROVIDERS: PCP Nurse Practitioner Family; Visit Provider Nurse Practitioner | DX: M25.561 Pain in right knee (principal); M25.562 Pain in left knee; M22.2X1 Patellofemoral disorders, right knee; M22.2X2 Patellofemoral disorders, left knee | CPT/HCPCS: 73560; 73565 ==

== ENCOUNTER → 2024-08-10 09:11 | Outpatient (BNVA) | payer MEDICAID, SELFPAY | PROVIDERS: PCP Nurse Practitioner Family; Visit Provider Nurse Practitioner Women's Health | DX: N95.1 Menopausal and female climacteric states (principal) | CPT/HCPCS: 84402; 84403 ==

== ENCOUNTER 2024-08-11 05:00 | Outpatient (RCR) | payer MEDICAID, SELFPAY | END 2024-09-10 23:59 | disposition home or self-care (01) | LOC: TPT 05:00 | PROVIDERS: Visit Provider Nurse Practitioner | DX: M22.2X1 Patellofemoral disorders, right knee (principal); M22.2X2 Patellofemoral disorders, left knee; M25.561 Pain in right knee; M25.562 Pain in left knee; G89.29 Other chronic pain; M23.51 Chronic instability of knee, right knee; M23.52 Chronic instability of knee, left knee | CPT/HCPCS: 97110; 97161 ==

== ENCOUNTER 2024-09-11 05:00 | Outpatient (RCR) | payer MEDICAID, SELFPAY | END 2024-10-11 23:59 | disposition home or self-care (01) | LOC: TPT 05:00 | PROVIDERS: PCP Nurse Practitioner Family; Visit Provider Nurse Practitioner | DX: M22.2X1 Patellofemoral disorders, right knee (principal); M22.2X2 Patellofemoral disorders, left knee | CPT/HCPCS: 97110; 97140 ==

== ENCOUNTER → 2024-09-29 08:20 | Outpatient (BNVA) | payer MEDICAID, SELFPAY | PROVIDERS: PCP Nurse Practitioner Family; Visit Provider Orthopaedic Surgery | DX: M48.02 Spinal stenosis, cervical region (principal) | CPT/HCPCS: 72050 ==

== ENCOUNTER 2024-10-12 05:00 | Outpatient (RCR) | payer MEDICAID, SELFPAY | END 2024-11-02 09:22 | disposition home or self-care (01) | LOC: TPT 05:00 | PROVIDERS: PCP Nurse Practitioner Family; Visit Provider Nurse Practitioner | DX: M22.2X1 Patellofemoral disorders, right knee (principal); M22.2X2 Patellofemoral disorders, left knee; M25.561 Pain in right knee; M25.562 Pain in left knee; G89.29 Other chronic pain | CPT/HCPCS: 97110; 97164 ==

== ENCOUNTER → 2024-10-21 08:20 | Outpatient (BNVA) | payer MEDICAID, SELFPAY | PROVIDERS: PCP Nurse Practitioner Family; Visit Provider Nurse Practitioner Women's Health | DX: Z30.430 Encounter for insertion of intrauterine contraceptive device (principal); N94.6 Dysmenorrhea, unspecified | CPT/HCPCS: 81025 ==

== ENCOUNTER 2024-10-23 13:27 | Outpatient (CLI) | payer MEDICAID, SELFPAY ==
--- NOTE | 2024-10-23 13:45 | MR_ITS ---
WS: [id number] MRI CERVICAL SPINE NONCONTRAST HISTORY: Neck pain COMPARISON: 04/11/2023 Technique: Multiplanar, multisequence noncontrast imaging of the cervical spine. Straightening and mild reversal of the normal cervical lordosis. No fracture or marrow edema. Signal within the cervical cord is normal. Visualized posterior fossa is unremarkable. Craniocervical junction, C1 and C2 relationship, odontoid process and soft tissues are normal. C2-C3: Normal. C3-C4: Mild annular disc bulging with mild effacement of CSF. Small bilateral foraminal osteophytes. Mild central and foraminal stenosis. C4-C5: Small central disc protrusion. Mild annular disc bulging and osteophytic ridging. Mild disc osteophyte contact on the central canal. Mild central and foraminal stenosis. C5-C6: Central disc protrusion with annular fissure. There is contact on the ventral cord and effacement of CSF. Small bilateral foraminal osteophytes. Mild to moderate central and bilateral foraminal stenosis. Mild progression since the prior study. C6-C7: Minimal disc bulging. No stenosis. C7-T1: Normal. Very small bilateral thyroid nodules. Largest is 5 mm on the LEFT. MR/MR cervical spin wo con* [id number] IMPRESSION: 1. No acute fractures or marrow edema. 2. C5-6: Central disc protrusion and foraminal osteophytes. There is mild to m oderate central and foraminal stenosis which has progressed since the prior jennifer dy. 3. C3-4 and C4-5: Mild central and bilateral foraminal stenosis due to disc an d osteophyte disease. No interval progression. 4. Normal signal within the cord.
--- NOTE | 2024-10-23 15:30 | US_ITS ---
WS: [id number] US pelv w/transvag [id number] HISTORY: R10.2 - Pelvic and perineal pain COMPARISON: 09/13/2021 Uterus: 9.6 cm x 5.3 cm x 4.2 cm. Prior normal size anteverted uterus. Prior scars along the lower uterine segment from C-sections. Uterus is slightly lobulated and heterogeneous but no discrete mass or nodule is identified. Endometrium: 0.6 cm. IUD is noted. The IUD appears to be appropriately positioned. The distal IUD is very close to the tract scar. Right ovary: 2.0 cm x 2.2 cm x 2.4 cm. Normal size and vascularity, no cystic or solid masses. Left ovary: 3.2 cm x 2.7 cm x 2.2 cm. Normal size and vascularity, no cystic or solid masses. Small follicle associated with the LEFT ovary. No free fluid in the cul-de-sac. US/US pelv w/transvag [id number] IMPRESSION: 1. IUD remains in good position along the endometrium. 2. Prior scar along the lower uterine segment. 3. Heterogeneous myometrium but no mass or fibroid is identified. 4. No free fluid or adnexal mass.
== END 2024-10-23 13:28 | disposition home or self-care (01) ==
LOC: RAD 13:27
PROVIDERS: PCP Nurse Practitioner Family; Visit Provider Orthopaedic Surgery
DX: M54.2 Cervicalgia (principal)
CPT/HCPCS: 72141; 76830; 76856

== ENCOUNTER 2024-11-05 08:38 | Outpatient (CLI) | payer MEDICAID, SELFPAY ==
[2024-11-05 09:42] LABS: Hematocrit 36.4 % (36-47); Hemoglobin 11.80 g/dL (11.27-16.99); Mean Corpuscular HGB Conc 32.4 g/dL (30-55); Mean Corpuscular Hemoglobin 28.3 pg (27-33); Mean Corpuscular Volume 87.3 fl (85-98); Nucleated Red Blood Cells % 0 %; Platelet Count 258 10^3/cmm (157-399); Red Blood Count 4.17 10^6/uL (3.85-5.65); White Blood Count 7.45 10^3/uL (3.29-11.43)
[2024-11-05 09:47] LABS: Glucose Urine UA Negative (Normal); Nitrate Urine Negative (Negative); Specific Gravity, Urine 1.022 (1.005-1.030)
[2024-11-05 09:56] LABS: Add Urine Microscopic? YES
[2024-11-05 09:58] LABS: Estmated Average Glucose 134; Hemoglobin A1C 6.3 % (4.0-6.0)
[2024-11-05 10:02] LABS: Alanine Aminotransferase 23 U/L (0-33); Albumin Level 4.1 g/dL (3.5-5.2); Alkaline Phosphatase 70 U/L (35-105); Anion Gap 15.7 (5-19); Aspartate Amino Transferase 15 U/L (0-32); Blood Urea Nitrogen 9 mg/dL (6-20); Calcium 9.1 mg/dL (8.5-10.5); Carbon Dioxide 23 mmol/L (22-29); Chloride 102 mmol/L (98-107); Globulin 3.0 g/dL (1.3-4.6); Glucose 134 mg/dL (65-115); Osmolality Calculated 285 mOsm/kg (285-295); Potassium 3.7 mmol/L (3.5-5.1); Sodium 137 mmol/L (136-145); Total Protein 7.1 g/dL (6.6-8.7)
[2024-11-05 10:29] LABS: UA Slide Review UA Slide Review Perf
== END 2024-11-05 08:39 | disposition home or self-care (01) ==
LOC: LAB 08:40
PROVIDERS: PCP Nurse Practitioner Family; Visit Provider Orthopaedic Surgery
DX: Z01.818 Encounter for other preprocedural examination (principal)
CPT/HCPCS: 36415; 80053; 81001; 83036; 85025

== ENCOUNTER 2024-11-25 09:13 | Day surgery (SDC) | payer MEDICAID, SELFPAY ==
[2024-11-25] VITALS (16 sets, daily range): BP systolic 133–157; BP diastolic 68–99; PULSE 68–89; RESP 12–24; TEMP 36.2–36.6; O2SAT 89–98; BMI 39.1
--- NOTE | 2024-11-25 10:28 | ANES.PREANE2 ---
Pre-Anesthetic Assessment Height/Weight: Height 1.7 m Weight 113.398 kg O2 Del Method Room Air 11/25/24 09:46 Preop Diagnosis: Cervical stenosis with radiculopathy and myelopathy Operation Date: 11/25/24 10:40 Proposed Procedures p Anterior Cervical Discectomy & Fusion ACDF(Not Applicable) - Benitez Wahl DO Familial anesthetic complications: None Was Beta Danni taken within 24 hours: N/A Was Clonidine taken within 24 hours: N/A Last intake: Intake Last Liquid Date 11/24/24 Last Liquid Time 23:30 Last Solid Date 11/24/24 Last Solid Time 19:00 Social No alcohol and No tobacco Exam alert, oriented x 3, clear to auscultation bilaterally and regular rate & rhythm Airway Mallampati: Class III Dentition: chipped and full Pulmonary Sleep Apnea CV/HEM Arrythmia ( benign ) Metabolic Morbid Obesity PCOS Anesthetic Plan ASA status: 2 Anesthesia: General Risk of > 500 ml blood loss (7ml/kg in children): No Medications/Allergies Home Medications ?Medication ?Instructions ?Recorded ?Confirmed ?Last Taken ?Type nystatin 100,000 unit/gram topical 1 applic topical BID #30 grams 05/18/24 11/24/24 11/24/24 Rx cream vortioxetine 10 mg tablet 10 mg PO BEDTIME 05/18/24 11/24/24 11/24/24 History (Trintellix) atorvastatin 10 mg tablet 10 mg PO BEDTIME 11/24/24 11/24/24 11/24/24 History estradiol 0.5 mg tablet 0.5 mg PO BEDTIME 11/24/24 11/24/24 11/24/24 History ibuprofen 800 mg tablet 800 mg PO TID PRN Pain (Scale 11/24/24 11/24/24 11/17/24 History Score 1-3) progesterone micronized 100 mg 100 mg PO BEDTIME 11/24/24 11/24/24 11/24/24 History capsule Allergies Allergy/AdvReac Type Severity Reaction Status Date / Time codeine Allergy ADR/ALGY-Fl Verified 11/13/24 09:16 ushing Penicillins Allergy ADR/ALGY-Flushing---can Verified 11/13/24 09:16 take Keflex and amoxicillin [facility] Anesthesia Medical History Primary osteoarthritis of left knee Chronic instability of both knee joints Chronic patellofemoral pain of both knees Patellofemoral pain syndrome of both knees Fatigue No pertinent past medical history Denies diabetes, asthma, hypertension, seizures, DVT/PE PCP: MERISSA Bee History of congenital dysplasia of hip Depression Hyperlipidemia Surgical History S/P foot surgery 1994, performed for varicose vein thrombosis S/P tubal ligation Performed in 2008 at time of last Hx of spinal fusion Hx of section Family History Father , age 66; lung ca; COPD Hyperlipidemia Heart disease CAD (coronary artery disease) Cancer Lung disease Family/Other Dementia Grandmother Diabetes paternal Breast cancer diagnosed in her late 60s Cancer Mother Hypertension Breast cancer diagnosed in her late 50s. Cancer Grandfather Suicide Denies family history of Colon cancer Ovarian cancer Clotting disorder Chronic kidney disease (CKD) Anesthesia complication Bleeding disorder Uterine cancer Thyroid disease Stroke Social History Smoking and tobacco/nicotine status: never used tobacco/nicotine Female Reproductive History Date of last menstrual period: 11/17/24 Data Anesthesia Cardiac Studies: Echocardiogram 01/18/22 Cardiac Event Monitor 12/26/21
[2024-11-25 10:33] LABS: OR HCG Qualitative Urine Negative (Negative)
--- NOTE | 2024-11-25 10:56 | W.PM.OPSUD ---
Surgery/Procedure H&P Update DATE OF PROCEDURE: November 25, 2024 DATE H&P PERFORMED: 11/05/24 H&P UPDATE INFORMATION: I have reviewed H&P completed within last 30 days, I have examined patient prior to procedure and No changes to prior documentation PREOP DIAGNOSIS: Cervical stenosis with radiculopathy and myelopathy PLANNED PROCEDURE: Operation Date: 11/25/24 10:40 Proposed Procedures p Anterior Cervical Discectomy & Fusion ACDF(Not Applicable) - Benitez Wahl DO
[2024-11-25] MEDS: lidocaine-epi 1% 20 mL INJ 10 ML INJECTION (12:24)
--- NOTE | 2024-11-25 13:38 | PM.OP ---
Operative Report Date of procedure: November 25, 2024 Pre-op diagnosis: Cervical stenosis with radiculopathy Post-op diagnosis: same Procedure done: 1. Anterior diskectomy C4/5 2. Anterior discectomy C5/6 3. Insertion of cage C4/5 4. Insertion of Cage C5/6 5. Instrumentation with anterior plate from C4-C6 6. Use of allograft Surgeon: Benitez Wahl DO Estimated blood loss (mL): 25 Procedure: 1. Anterior diskectomy C4/5 2. Anterior discectomy C5/6 3. Insertion of cage C4/5 4. Insertion of Cage C5/6 5. Instrumentation with anterior plate from C4-C6 6. Use of allograft The patient was taken to the operating room, where he underwent general endotracheal anesthesia without complications. He was then positioned supine on the operating table, and all areas of impingement were well padded. The arms were carefully padded and tucked at his sides. A roll was placed between the shoulder blades.. An x-ray was done to determine the appropriate level for the skin incision. The entire neck was then sterilely prepped and draped in the usual fashion. Neuromonitoring was attached prior to prepping. A transverse skin incision was made and carried down to the platysma muscle. This was then split in line with its fibers. Blunt dissection was carried down medial to the carotid sheath and lateral to the trachea and esophagus until the anterior cervical spine was visualized. A needle was placed into a disc and an x-ray was done to determine its location. The longus colli muscles were then elevated bilaterally with the electrocautery unit. Self-retaining retractors were placed deep to the longus colli muscle. Attention was brought to the C4/5 level that was confirmed on x-ray. A caspar pin was placed into the C4 vertebrae and the C5 vertebrae. The disk space was then distracted. The microscope was then brought in. A radical anterior discectomies were performed at C4/5. This included complete removal of the anterior annulus, nucleus, and posterior annulus. The posterior longitudinal ligament was removed as were the posterior osteophytes. Foraminotomies were then accomplished bilaterally. This was done using a high speed licha, kerrison rongeurs and curretes Once all of this was accomplished, the curved currette was used to check for any residual compression. The central canal was wide open as were the foramen. A high-speed bur was used to remove the cartilaginous endplates above and below the interspace. Bleeding cancellous bone was exposed. The disc space were measured and appropriate size cage were placed sterilely onto the field. Allograft graft was packed into the cages. The cage was then placed and there was good juxtaposition against the bleeding decorticated surfaces and good distraction of each interspace. Attention was brought to the next interspace. The Wakefield pins were removed. Bone wax was used to prevent any bleeding from occurring at the pin sites. Attention was brought to the C5/6 level that was confirmed on x-ray. A caspar pin was placed into the C 5 vertebrae and the C 6 vertebrae. The disk space was then distracted. The microscope was then brought in. A radical anterior discectomies were performed at C 5/6. This included complete removal of the anterior annulus, nucleus, and posterior annulus. The posterior longitudinal ligament was removed as were the posterior osteophytes. Foraminotomies were then accomplished bilaterally. This was done using a high speed licha, kerrison rongeurs and curretes Once all of this was accomplished, the curved currette was used to check for any residual compression. The central canal was wide open as were the foramen. A high-speed bur was used to remove the cartilaginous endplates above and below the interspace. Bleeding cancellous bone was exposed. The disc space were measured and appropriate size cage were placed sterilely onto the field. Allograft graft was packed into the cages. The cage was then placed and there was good juxtaposition against the bleeding decorticated surfaces and good distraction of each interspace. The Wakefield pins were removed. Bone wax was used to prevent any bleeding from occurring at the pin sites. The appropriate size anterior cervical locking plate was chosen and bent into gentle lordosis. Two screws were then placed into each of the vertebral bodies at C4, C5 and C6. There was excellent purchase. A final x-ray was done confirming good position of the hardware and Cages. The locking screws were then applied, also with excellent purchase. Following a final copious irrigation, there was good hemostasis and no dural leaks. The carotid pulse was strong. The wounds were then closed in layers using 2-0 Vicryl suture for the platysma muscle, 2-0 Vicryl suture for the subcutaneous tissue, and 4-0 monocryl suture in a subcuticular skin closure. Glue was placed followed by application of a sterile dressing. The drain was hooked to bulb suction. A soft collar was applied. The patient was then carefully returned to the supine position on his hospital bed where he was reversed and extubated and taken to the recovery room having tolerated the procedure well.
[2024-11-25] MEDS: fentaNYL 50 mcg/mL INJ 2mL IVP (13:55)
--- NOTE | 2024-11-25 14:28 | PC.NURSE ---
ROM and sensation all four extremeties.
[2024-11-25] MEDS: HYDROcodone-acetaminophen 5-325 mg Tablet 2 TAB PO (15:06)
--- NOTE | 2024-11-25 15:07 | XR_ITS ---
WS: [id number] XR cervical spine 3V* [id number] REASON FOR EXAM: diskectomy C4/5 FINDINGS: Anterior plate and screw fixation with interbody fusion devices C4-C6. Surgical appliances are intact and in proper position and alignment. XR/XR cervical spine 3V* [id number] IMPRESSION: Anterior cervical fusion without abnormality.
--- NOTE | 2024-11-25 16:00 | ANE.PACU2 ---
Inpatient post-anesthesia follow up: Airway intact: Yes Vital signs: Temperature 97.8 F Pulse Rate 78 Respiratory Rate 16 Blood Pressure 140/82 Pulse Oximetry 95 Oxygen Delivery Me thod Room Air Oxygen Flow Rate 8 Fraction of Inspir ed Oxygen Hydration adequate: Yes Nausea and vomiting: No Pain level: 1 Mental status: Baseline
[2024-11-25 16:30] LABS: Hepatitis A Antibody IgM Non-Reactive (Nonreactive); Hepatitis B Surface Antigen Non-Reactive (Nonreactive)
[2024-11-25 16:46] LABS: HIV 1 & 2 Antigen Non-Reactive (Non-Reactiv)
== END 2024-11-25 16:00 | disposition home or self-care (01) ==
PROVIDERS: Anesthesiology; PCP Nurse Practitioner Family; Visit Provider Orthopaedic Surgery
PROC: 0RB30ZZ Excision of Cervical Vertebral Disc, Open Approach (ICD-10-PCS; CPT 22551; principal; 2024-11-25 10:20)
DX: M48.02 Spinal stenosis, cervical region (principal); M54.12 Radiculopathy, cervical region; G47.30 Sleep apnea, unspecified; E66.01 Morbid (severe) obesity due to excess calories; Z68.39 Body mass index [BMI] 39.0-39.9, adult; E28.2 Polycystic ovarian syndrome; E78.5 Hyperlipidemia, unspecified; F32.A Depression, unspecified
CPT/HCPCS: 22551; 22552; 22853 ×2; 20930; 22845; 51702; 72040; 76000; 80074; 81025; 87806; C1713; C1763; C9359; J0131; J0330; J1100; J1885; J2250; J2371; J2405; J2704; J3010; J3490; J7030; J9999

== ENCOUNTER 2024-12-17 08:02 | Outpatient (CLI) | payer MEDICAID, SELFPAY ==
--- NOTE | 2024-12-17 08:06 | MR_ITS ---
WS: [id number] MRI LUMBAR SPINE NONCONTRAST HISTORY: HX OF LUMBAR FUSION/LUMBAR RADICULOPATHY COMPARISON: 04/14/2024 TECHNIQUE: Sagittal and axial multisequence imaging is submitted. Prior fusion hardware extends from T10-L2. Mild compression deformity of T12. No acute fracture. Very slight bowing of the posterior endplate of T12 is similar to the prior study. Normal lumbar alignment with no compression fractures or marrow edema. Disc spaces and vertebral body heights are well-preserved. Conus terminates normally at L1. L1-L2: Normal. L2-L3: Mild disc bulging and facet arthritis. No high-grade stenosis. L3-L4: Mild disc bulging with a shallow RIGHT foraminal disc protrusion. Mild ligamentum flavum and facet arthritis. No significant stenosis. L4-L5: Mild disc bulging with ligamentum flavum and facet arthritis. There is mild encroachment upon the thecal sac and subarticular recesses. Small disc osteophyte in the LEFT foramen. Mild central, subarticular recess and foraminal stenosis. Not significantly changed. L5-S1: Mild disc bulging with a RIGHT foraminal disc osteophyte complex. There is mild contact on the exiting RIGHT L5 nerve root. Very minimal encroachment upon the S1 nerve roots. Paravertebral soft tissues are negative. MR/MR lumbar spine wo/w con [id number] IMPRESSION: 1. Thoracolumbar fusion from T10-L2 appears intact. 2. Stable appearance of the minimal compression fracture of T12. 3. No high-grade central or foraminal stenosis. 4. Very shallow RIGHT foraminal disc protrusion at L3-4 without stenosis. 5. Mild central, subarticular recess and foraminal stenosis unchanged at L4-5. Small disc osteophyte in the LEFT foramen. 6. RIGHT foraminal disc osteophyte complex at L5-S1 with mild contact on the e xiting RIGHT L5 nerve root.
== END 2024-12-17 08:03 | disposition home or self-care (01) ==
LOC: RAD 08:02
PROVIDERS: PCP Nurse Practitioner Family; Visit Provider Anesthesiology
DX: M51.17 Intervertebral disc disorders with radiculopathy, lumbosacral region (principal); Z98.1 Arthrodesis status; M48.061 Spinal stenosis, lumbar region without neurogenic claudication; M25.78 Osteophyte, vertebrae; M51.26 Other intervertebral disc displacement, lumbar region; M46.06 Spinal enthesopathy, lumbar region; M47.896 Other spondylosis, lumbar region; M48.07 Spinal stenosis, lumbosacral region; M43.25 Fusion of spine, thoracolumbar region
CPT/HCPCS: 72158

== ENCOUNTER → 2024-12-22 11:35 | Outpatient (BNVA) | payer MEDICAID, SELFPAY | PROVIDERS: PCP Nurse Practitioner Family; Visit Provider Nurse Practitioner Family | DX: R30.0 Dysuria (principal); N39.0 Urinary tract infection, site not specified | CPT/HCPCS: 81003; 87086 ==

== ENCOUNTER → 2025-01-12 08:35 | Outpatient (BNVA) | payer MEDICAID, SELFPAY | PROVIDERS: PCP Nurse Practitioner Family; Visit Provider Orthopaedic Surgery | DX: Z98.890 Other specified postprocedural states (principal); Z98.1 Arthrodesis status | CPT/HCPCS: 72040 ==

== ENCOUNTER → 2025-01-27 10:19 | Outpatient (BNVA) | payer MEDICAID, SELFPAY | PROVIDERS: PCP Nurse Practitioner Family; Visit Provider Nurse Practitioner Family | DX: R39.9 Unspecified symptoms and signs involving the genitourinary system (principal); N39.0 Urinary tract infection, site not specified | CPT/HCPCS: 81000; 87086 ==